=== PATIENT | male | born 1950 | race American Indian/Alaskan Native ===

== ENCOUNTER 2017-08-29 12:00 | Emergency (ER) | payer MEDICARE ==
[2017-08-29] MEDS ORDERED: Albuterol/Ipratropium 3.0-0.5 MG/3 ML Neb Soln NEB ONE (12:35)
--- NOTE | 2017-08-29 12:42 | EDM.PDOC ---
ED HPI GENERAL MEDICAL PROBLEM - General Chief Complaint: General Stated Complaint: FALL VIA NORTH Time Seen by Provider: 08/29/17 12:15 Source of Information: Reports: Patient, EMS History Limitations: Reports: No Limitations - History of Present Illness INITIAL COMMENTS - FREE TEXT/NARRATIVE: 67-year-old male brought in by EMS after being found on the bathroom floor at his local assisted care residence. He has only been there for 2 or 3 weeks. It' s felt that he may have been on the floor for up to 20-30 minutes, his hands looked dusky and he was confused. EMS was called and he was found to have O2 saturations only 85%. He has significant cough and wheezing. He is actively smoking. He was given oxygen in route and now is back to baseline, color is good and he has no complaints. When asked why he was on the floor he said he "slipped". He was too weak to get up. He denies any fevers or chills. Onset: Unknown/Unsure Severity: Moderate Associated Symptoms: Reports: Cough, Shortness of Breath. Denies: Fever/Chills Denies Pain Score (Numeric/FACES): 0 - Related Data Allergies Allergy/AdvReac Type Severity Reaction Status Date / Time acetaminophen [From Tylenol] Allergy Cannot Verified 08/29/17 12:15 Remember codeine Allergy Cannot Verified 08/29/17 12:15 Remember latex Allergy Cannot Verified 08/29/17 12:15 Remember morphine Allergy Cannot Verified 08/29/17 12:15 Remember tomato Allergy Cannot Verified 08/29/17 12:15 Remember Home Meds: Home Meds Cholecalciferol (Vitamin D3) [Vitamin D3] 1,000 unit PO DAILY 08/29/17 [History] Hydrocortisone 5 mg PO BEDTIME 08/29/17 [History] Hydrocortisone 10 mg PO DAILY 08/29/17 [History] Levothyroxine Sodium [Synthroid] 100 mcg PO DAILY 08/29/17 [History] OLANZapine [ZyPREXA] 5 mg PO Q6H PRN 08/29/17 [History] Past Medical History Cardiovascular History: Reports: High Cholesterol Endocrine/Metabolic History: Reports: Hypothyroidism - Infectious Disease History Infectious Disease History: Reports: Chicken Pox - Past Surgical History GI Surgical History: Reports: Cholecystectomy, Hernia, Inguinal Musculoskeletal Surgical History: Reports: Shoulder Surgery Social & Family History - Tobacco Use Smoking Status *Q: Current Every Day Smoker Years of Tobacco use: 35 Packs/Tins Daily: 0.5 Used Tobacco, but Quit: No Second Hand Smoke Exposure: No - Caffeine Use Caffeine Use: Reports: Coffee, Soda, Tea - Recreational Drug Use Recreational Drug Use: No ED ROS GENERAL - Review of Systems Review Of Systems: See Below Constitutional: Reports: Weakness. Denies: Fever, Chills HEENT: Reports: No Symptoms Respiratory: Reports: Shortness of Breath, Wheezing, Cough. Denies: Sputum Cardiovascular: Denies: Chest Pain GI/Abdominal: Denies: Abdominal Pain, Nausea, Vomiting Musculoskeletal: Reports: No Symptoms Skin: Reports: Pallor Neurological: Reports: Weakness. Denies: Confusion, Headache Psychiatric: Reports: No Symptoms ED EXAM, GENERAL - Physical Exam Exam: See Below Exam Limited By: No Limitations General Appearance: Alert, No Apparent Distress Eye Exam: Bilateral Eye: EOMI Throat/Mouth: Normal Inspection Head: Atraumatic Neck: Supple, Non-Tender Respiratory/Chest: No Respiratory Distress, Wheezing (Diffuse expiratory wheezing, some focal rales the right posterior perihilar area) Cardiovascular: Regular Rate, Rhythm GI/Abdominal: Non-Tender Extremities: Normal Inspection. No: Pedal Edema Neurological: Alert, Oriented Psychiatric: Normal Affect, Normal Mood Skin Exam: Warm, Dry Course - Vital Signs Last Recorded V/S: Last Vital Signs Temp 98.6 F 08/29/17 12:20 Pulse 83 08/29/17 13:35 Resp 20 08/29/17 13:35 BP 139/82 08/29/17 13:35 Pulse Ox 94 L 08/29/17 13:35 - Orders/Labs/Meds Orders: Active Orders 24 hr Category Date Time Status RT Aerosol Therapy [RC] ASDIRECTED Care 08/29/17 12:35 Active Labs: Laboratory Tests 08/29/17 08/29/17 Range/Units 12:48 12:48 WBC 5.4 (4.5-11.0) K/uL RBC 4.11 L (4.30-5.90) M/uL Hgb 13.2 (12.0-15.0) g/dL Hct 39.2 L (40.0-54.0) % MCV 95 (80-98) fL MCH 32 H (27-31) pg MCHC 34 (32-36) % Plt Count 172 (150-400) K/uL Neut % (Auto) 47 (36-66) % Lymph % (Auto) 29 (24-44) % [place] % (Auto) 22 H (2-6) % Eos % (Auto) 2 (2-4) % Baso % (Auto) 0 (0-1) % Sodium 135 L (140-148) mmol/L Potassium 4.2 (3.6-5.2) mmol/L Chloride 98 L (100-108) mmol/L Carbon Dioxide 28 (21-32) mmol/L Anion Gap 13.2 (5.0-14.0) mmol/L BUN 23 H (7-18) mg/dL Creatinine 1.2 (0.8-1.3) mg/dL Est Cr Clr Drug Dosing 59.99 mL/min Estimated GFR (MDRD) > 60 (>60) Glucose 107 H (74-106) mg/dL Calcium 8.5 (8.5-10.1) mg/dL Total Bilirubin 0.7 (0.2-1.0) mg/dL AST 35 (15-37) U/L ALT 43 (12-78) U/L Alkaline Phosphatase 78 (46-116) U/L Creatine Kinase 200 (39-308) U/L Troponin I 0.018 (0.000-0.056) ng/mL Total Protein 7.4 (6.4-8.2) g/dL Albumin 3.4 (3.4-5.0) g/dL Globulin 4.0 H (2.3-3.5) g/dL Albumin/Globulin Ratio 0.9 L (1.2-2.2) Meds: Medications Discontinued Medications Generic Name Dose Route Start Last Admin Trade Name Freq PRN Reason Stop Dose Admin Albuterol/Ipratropium 3 ml 08/29/17 12:35 08/29/17 12:40 Duoneb 3.0-0.5 Mg/3 Ml NEB 08/29/17 12:36 3 ml ONETIME ONE Administration - Re-Assessments/Exams Free Text/Narrative Re-Assessment/Exam: 08/29/17 12:41 A DuoNeb was given. Portable chest x-ray was obtained along with a CBC, CMP, CK and troponin. 08/29/17 13:25 Influences were negative, CBC was normal, troponin negative. Patient did have some objective improvement after the DuoNeb and continued to have no complaints. I find no reason for transfer or acute admission. Departure - Departure Time of Disposition: 13:54 Disposition: [facility] Condition: Good Clinical Impression: Fall Qualifiers: Encounter type: initial encounter Qualified Code(s): W19.XXXA - Unspecified fall, initial encounter Reactive airway disease Qualifiers: Asthma severity: moderate Asthma persistence: persistent Asthma complication type: uncomplicated Qualified Code(s): J45.40 - Moderate persistent asthma, uncomplicated - Discharge Information Instructions: Fall Prevention in the Home, [id number] Referrals: PCP,None [Primary Care Provider] - Forms: ED Department Discharge Care Plan Goals: Continue medications as tolerated. Consider rechecking if worsening such as fever, increased cough or shortness of breath. Would recommend reducing smoking. - My Orders Last 24 Hours: My Active Orders 08/29/17 12:35 RT Aerosol Therapy [RC] ASDIRECTED - Assessment/Plan Last 24 Hours: My Active Orders 08/29/17 12:35 RT Aerosol Therapy [RC] ASDIRECTED
--- NOTE | 2017-08-29 14:49 | CR ---
Chest 1V Frontal INDICATION: cough COMPARISON: None FINDINGS: AP portable chest. Heart size normal. Mild vascular congestion and bibasilar congestion. No focal consolidations seen. N o pleural effusion. Age indeterminate left-sided rib fractures.
== END 2017-08-29 13:54 ==
LOC: JP.ED 12:00
DX: J45.40 Moderate persistent asthma, uncomplicated (principal); E03.9 Hypothyroidism, unspecified; E78.00 Pure hypercholesterolemia, unspecified; F17.210 Nicotine dependence, cigarettes, uncomplicated; Z88.5 Allergy status to narcotic agent; Z91.040 Latex allergy status; Z91.018 Allergy to other foods; Z79.899 Other long term (current) drug therapy; W19.XXXA Unspecified fall, initial encounter
CPT/HCPCS: 36415; 71045; 80053; 82550; 84484; 85025; 87804; 94640; 99285; J7620; 99284

== ENCOUNTER 2018-02-26 15:20 | Emergency (ER) | payer MEDICARE, MEDICAID ==
[2018-02-26] MEDS ORDERED: Albuterol/Ipratropium 3.0-0.5 MG/3 ML Neb Soln NEB ONE ×2 (16:02→16:39)
[2018-02-26] MEDS ORDERED: methylPREDNISolone Sod Succ 125 MG in Dextrose 5% in Water 100 ML IV ONE ×2 (16:02)
[2018-02-26] MEDS ORDERED: methylPREDNISolone Sodium Succinate 125 MG/2 ML SDV ONE (16:12)
[2018-02-26] MEDS: Sodium Chloride 0.9% 10 ML Syringe FLUSH PRN ×2 (16:23→18:03)
[2018-02-26] MEDS ORDERED: methylPREDNISolone Sodium Succinate 125 MG/2 ML SDV IV ONE (16:30)
[2018-02-26] MEDS ORDERED: Albuterol 0.083% 2.5 MG/3 ML Neb Soln NEB ONE (17:21)
--- NOTE | 2018-02-26 17:26 | EDM.PDOC ---
ED HPI GENERAL MEDICAL PROBLEM - General Chief Complaint: Respiratory Problem Stated Complaint: WHEEZING/SOB Time Seen by Provider: 02/26/18 15:42 Source of Information: Reports: Patient History Limitations: Reports: No Limitations - History of Present Illness INITIAL COMMENTS - FREE TEXT/NARRATIVE: Started this am Sx: sob, cough and wheezing Denies any lung issues: is a smoker; since he was a teen. Denies use of inhalers at home NO fever States he felt fine yesterday. Onset: Today Duration: Hour(s): (this morning) Quality: Reports: Pressure Worsens with: Reports: Movement Associated Symptoms: Reports: Cough, Shortness of Breath, Weakness - Related Data Allergies Allergy/AdvReac Type Severity Reaction Status Date / Time acetaminophen [From Tylenol] Allergy Cannot Verified 02/26/18 15:56 Remember codeine Allergy Cannot Verified 02/26/18 15:56 Remember latex Allergy Cannot Verified 02/26/18 15:56 Remember morphine Allergy Cannot Verified 02/26/18 15:56 Remember tomato Allergy Cannot Verified 02/26/18 15:56 Remember Home Meds: Home Meds Cholecalciferol (Vitamin D3) [Vitamin D3] 1,000 unit PO DAILY 08/29/17 [History] Hydrocortisone 5 mg PO BEDTIME 08/29/17 [History] Hydrocortisone 10 mg PO DAILY 08/29/17 [History] Levothyroxine Sodium [Synthroid] 100 mcg PO DAILY 08/29/17 [History] Albuterol [Proventil HFA] 2 puff INH Q4H PRN #1 inhaler 02/26/18 [Rx] Pravastatin [Pravachol] 1 tab PO BEDTIME 02/26/18 [History] Testosterone [Androgel] 3 applic TOP DAILY 02/26/18 [History] predniSONE [Prednisone] 50 mg PO DAILY #5 tablet 02/26/18 [Rx] Past Medical History Cardiovascular History: Reports: High Cholesterol, ID Endocrine/Metabolic History: Reports: Hypothyroidism Hematologic History: Reports: Anemia - Infectious Disease History Infectious Disease History: Reports: Chicken Pox - Past Surgical History GI Surgical History: Reports: Appendectomy, Cholecystectomy, Hernia, Inguinal Musculoskeletal Surgical History: Reports: Shoulder Surgery Social & Family History - Tobacco Use Smoking Status *Q: Current Every Day Smoker Years of Tobacco use: 53 Packs/Tins Daily: 0.5 - Caffeine Use Caffeine Use: Reports: None - Recreational Drug Use Recreational Drug Use: No ED ROS GENERAL - Review of Systems Review Of Systems: See Below Constitutional: Reports: Weakness Respiratory: Reports: Shortness of Breath, Wheezing, Pleuritic Chest Pain, Cough Cardiovascular: Reports: No Symptoms GI/Abdominal: Reports: No Symptoms : Reports: No Symptoms Musculoskeletal: Reports: No Symptoms Skin: Reports: No Symptoms Neurological: Reports: No Symptoms ED EXAM, GENERAL - Physical Exam Exam: See Below Exam Limited By: No Limitations General Appearance: Alert, WD/WN, No Apparent Distress Throat/Mouth: Normal Inspection, Normal Oropharynx Head: Atraumatic, Normocephalic Neck: Normal Inspection, Full Range of Motion Respiratory/Chest: Respiratory Distress, Wheezing, Prolonged Expiration Cardiovascular: Tachycardia. No: Regular Rate, Rhythm GI/Abdominal: Normal Bowel Sounds, Soft, Non-Tender Extremities: Normal Inspection, Normal Range of Motion, Non-Tender, No Pedal Edema Neurological: Alert, Oriented, CN II-XII Intact, Normal Cognition, Normal Gait Psychiatric: Normal Affect, Normal Mood Skin Exam: Warm, Dry, Intact, Normal Color, No Rash Course - Vital Signs Last Recorded V/S: Last Vital Signs Temp 97.9 F 02/26/18 18:00 Pulse 111 H 02/26/18 18:33 Resp 20 02/26/18 18:00 BP 151/97 H 02/26/18 18:33 Pulse Ox 95 02/26/18 18:33 - Orders/Labs/Meds Orders: Active Orders 24 hr Category Date Time Status Peripheral IV Care [RC] . DIRECTED Care 02/26/18 16:03 Active RT Aerosol Therapy [RC] ASDIRECTED Care 02/26/18 16:02 Active RT Aerosol Therapy [RC] ASDIRECTED Care 02/26/18 16:39 Active RT Aerosol Therapy [RC] ASDIRECTED Care 02/26/18 17:21 Active Chest 1V Frontal [CR] Stat Exams 02/26/18 16:03 Taken Peripheral IV Insertion Adult [OM.PC] Stat Oth 02/26/18 16:03 Ordered Labs: Laboratory Tests 02/26/18 02/26/18 02/26/18 Range/Units 16:32 16:32 16:45 WBC 10.9 (4.5-11.0) K/uL RBC 4.65 (4.30-5.90) M/uL Hgb 14.5 (12.0-15.0) g/dL Hct 43.3 (40.0-54.0) % MCV 93 (80-98) fL MCH 31 (27-31) pg MCHC 34 (32-36) % Plt Count 209 (150-400) K/uL Neut % (Auto) 66 (36-66) % Lymph % (Auto) 22 L (24-44) % [place] % (Auto) 9 H (2-6) % Eos % (Auto) 2 (2-4) % Baso % (Auto) 0 (0-1) % Sodium 142 (140-148) mmol/L Potassium 4.2 (3.6-5.2) mmol/L Chloride 104 (100-108) mmol/L Carbon Dioxide 26 (21-32) mmol/L Anion Gap 11.9 (5.0-14.0) mmol/L BUN 19 H (7-18) mg/dL Creatinine 1.2 (0.8-1.3) mg/dL Est Cr Clr Drug Dosing 59.99 mL/min Estimated GFR (MDRD) > 60 (>60) Glucose 119 H (74-106) mg/dL Calcium 8.3 L (8.5-10.1) mg/dL Total Bilirubin 0.3 D (0.2-1.0) mg/dL AST 14 L (15-37) U/L ALT 21 (12-78) U/L Alkaline Phosphatase 124 H (46-116) U/L NT-Pro-B Natriuret Pep 194 H (5-125) pg/mL Total Protein 7.4 (6.4-8.2) g/dL Albumin 3.3 L (3.4-5.0) g/dL Globulin 4.1 H (2.3-3.5) g/dL Albumin/Globulin Ratio 0.8 L (1.2-2.2) Meds: Medications Discontinued Medications Generic Name Dose Route Start Last Admin Trade Name Freq PRN Reason Stop Dose Admin Albuterol 2.5 mg 02/26/18 17:21 02/26/18 18:04 Proventil Neb Soln NEB 02/26/18 17:22 2.5 mg ONETIME ONE Administration Albuterol/Ipratropium 3 ml 02/26/18 16:02 02/26/18 16:20 Duoneb 3.0-0.5 Mg/3 Ml NEB 02/26/18 16:03 3 ml ONETIME ONE Administration Albuterol/Ipratropium 3 ml 02/26/18 16:39 02/26/18 16:45 Duoneb 3.0-0.5 Mg/3 Ml NEB 02/26/18 16:40 3 ml ONETIME ONE Administration Ceftriaxone Sodium 1 gm/ 50 mls @ 100 mls/hr 02/26/18 17:35 02/26/18 18:04 Sodium Chloride IV 02/26/18 18:04 100 mls/hr ONETIME ONE Administration Methylprednisolone Sodium Succinate 125 mg 02/26/18 16:30 02/26/18 16:22 Solu-Medrol IV 02/26/18 16:31 125 mg ONETIME ONE Administration Methylprednisolone Sodium Succinate Confirm 02/26/18 16:12 02/26/18 16:38 Solu-Medrol Administered 02/26/18 16:13 Not Given Dose 125 mg .ROUTE .STK-MED ONE Sodium Chloride 10 ml 02/26/18 16:03 02/26/18 18:03 Saline Flush FLUSH 10 ml ASDIRECTED PRN Administration Keep Vein Open - Re-Assessments/Exams Free Text/Narrative Re-Assessment/Exam: 02/26/18 17:26 Following 3 nebulizer treatments, patient feels a little better. The wob has decreased. He doesn't want to be admitted to hospital. 02/26/18 17:56 He again is refusing admission; will place him on azithromycin, prednisone and albuterol; is to FU with PCP this week. Departure - Departure Time of Disposition: 18:30 Disposition: Home, Self-Care 01 Condition: Fair Clinical Impression: COPD exacerbation, Acute bronchitis - Discharge Information Prescriptions: Albuterol [Proventil HFA] 2 puff INH Q4H PRN #1 inhaler PRN Reason: Shortness Of Breath predniSONE [Prednisone] 50 mg PO DAILY #5 tablet Instructions: Cough, Adult, [id number], Chronic Obstructive Pulmonary Disease , [id number], Acute Bronchitis, Adult, [id number] Referrals: Zi Olivas MD [Primary Care Provider] - Forms: ED Department Discharge Additional Instructions: He refuses admission; he is in an assisted living; he understands that his symptoms can go from bad to worse and he still declines admission; Home with albuterol inhaler, azithromycin and predisone. Is to FU with PCP this week. Return to ER with worsening of symptoms. - My Orders Last 24 Hours: My Active Orders 02/26/18 16:02 RT Aerosol Therapy [RC] ASDIRECTED 02/26/18 16:03 Peripheral IV Care [RC] . DIRECTED Chest 1V Frontal [CR] Stat Peripheral IV Insertion Adult [OM.PC] Stat 02/26/18 16:39 RT Aerosol Therapy [RC] ASDIRECTED 02/26/18 17:21 RT Aerosol Therapy [RC] ASDIRECTED - Assessment/Plan Last 24 Hours: My Active Orders 02/26/18 16:02 RT Aerosol Therapy [RC] ASDIRECTED 02/26/18 16:03 Peripheral IV Care [RC] . DIRECTED Chest 1V Frontal [CR] Stat Peripheral IV Insertion Adult [OM.PC] Stat 02/26/18 16:39 RT Aerosol Therapy [RC] ASDIRECTED 02/26/18 17:21 RT Aerosol Therapy [RC] ASDIRECTED
[2018-02-26] MEDS ORDERED: cefTRIAXone 1 GM in Sodium Chloride 0.9% 50 ML IV ONE (17:35)
--- NOTE | 2018-02-28 10:21 | CR ---
Chest 1V Frontal INDICATION: shortness of breath COMPARISON: 08/29/2017 FINDINGS: AP portable chest. Probable mild fibrotic changes at the lung bases unchanged. No new infiltrates or definite signs of p ulmonary edema. No pleural effusion. Heart size normal. Old left rib fractures. If symptoms persist r ecommend CT chest without IV contrast
== END 2018-02-26 18:50 | disposition home or self-care (01) ==
LOC: JP.ED 15:20
DX: J44.0 Chronic obstructive pulmonary disease with (acute) lower respiratory infection (principal); J44.1 Chronic obstructive pulmonary disease with (acute) exacerbation; J20.9 Acute bronchitis, unspecified; E03.9 Hypothyroidism, unspecified; E78.00 Pure hypercholesterolemia, unspecified; I25.2 Old myocardial infarction; F17.210 Nicotine dependence, cigarettes, uncomplicated; Z79.899 Other long term (current) drug therapy; Z88.5 Allergy status to narcotic agent; Z91.018 Allergy to other foods; Z91.040 Latex allergy status
CPT/HCPCS: 36415; 71045; 80053; 83880; 85025; 94640; 96365; 96375; 99285; J0696; J2930; J7050; J7620

== ENCOUNTER 2018-04-05 12:54 | Emergency (ER) | payer MEDICARE, MEDICAID ==
--- NOTE | 2018-04-05 13:28 | EDM.PDOC ---
ED HPI GENERAL MEDICAL PROBLEM - General Chief Complaint: Respiratory Problem Stated Complaint: SHORTNESS OF BREATH, WHEEZING Time Seen by Provider: 04/05/18 13:28 Source of Information: Reports: Patient History Limitations: Reports: No Limitations - History of Present Illness INITIAL COMMENTS - FREE TEXT/NARRATIVE: Cyril presents today with complaints of SOB with cough for 24 hours. He reports he has tried a nebulizer this morning but it didn't really help. Patient oriented to self only, not oriented to day, date or year. - Related Data Allergies Allergy/AdvReac Type Severity Reaction Status Date / Time acetaminophen [From Tylenol] Allergy Cannot Verified 04/05/18 13:15 Remember codeine Allergy Cannot Verified 04/05/18 13:15 Remember latex Allergy Cannot Verified 04/05/18 13:15 Remember morphine Allergy Cannot Verified 04/05/18 13:15 Remember tomato Allergy Cannot Verified 04/05/18 13:15 Remember Home Meds: Home Meds Cholecalciferol (Vitamin D3) [Vitamin D3] 1,000 unit PO DAILY 08/29/17 [History] Hydrocortisone 5 mg PO BEDTIME 08/29/17 [History] Hydrocortisone 10 mg PO DAILY 08/29/17 [History] Levothyroxine Sodium [Synthroid] 100 mcg PO DAILY 08/29/17 [History] Albuterol [Proventil HFA] 2 puff INH Q4H PRN #1 inhaler 02/26/18 [Rx] Pravastatin [Pravachol] 1 tab PO BEDTIME 02/26/18 [History] Testosterone [Androgel] 3 applic TOP DAILY 02/26/18 [History] predniSONE [Prednisone] 50 mg PO DAILY #5 tablet 02/26/18 [Rx] Past Medical History Cardiovascular History: Reports: CAD, High Cholesterol, [place] Musculoskeletal History: Reports: Osteoarthritis Endocrine/Metabolic History: Reports: Hypothyroidism, Other (See Below) Other Endocrine/Metabolic History: panhypopituitaryism Hematologic History: Reports: Anemia - Infectious Disease History Infectious Disease History: Reports: Chicken Pox - Past Surgical History Cardiovascular Surgical History: Reports: None GI Surgical History: Reports: Appendectomy, Cholecystectomy, Hernia, Inguinal Musculoskeletal Surgical History: Reports: Shoulder Surgery Social & Family History - Tobacco Use Smoking Status *Q: Current Every Day Smoker Years of Tobacco use: 20 Packs/Tins Daily: 0.5 - Caffeine Use Caffeine Use: Reports: None - Recreational Drug Use Recreational Drug Use: No ED ROS GENERAL - Review of Systems Review Of Systems: See Below Constitutional: Denies: Fever, Chills, Malaise, Weakness HEENT: Reports: Ear Pain, Rhinitis. Denies: Dental Pain, Sinus Problem, Throat Pain Respiratory: Reports: Shortness of Breath, Wheezing, Cough. Denies: Pleuritic Chest Pain, Sputum, Hemoptysis Cardiovascular: Reports: Dyspnea on Exertion, Edema. Denies: Chest Pain, Lightheadedness, Palpitations, Syncope Endocrine: Reports: No Symptoms GI/Abdominal: Denies: Abdominal Pain, Bloody Stool, Constipation, Diarrhea, Nausea, Vomiting : Reports: No Symptoms Musculoskeletal: Reports: No Symptoms Skin: Reports: Other (Edema bilateral lower extremities 2+) Neurological: Reports: Confusion. Denies: Dizziness, Headache, Numbness, Tingling, Weakness Psychiatric: Reports: No Symptoms Hematologic/Lymphatic: Reports: No Symptoms Immunologic: Reports: No Symptoms ED EXAM, GENERAL - Physical Exam Exam: See Below Free Text/Narrative:: Cyril is alert to self 67 year old male who lives in an assisted living facility presenting with SOB and cough that worsened this morning. He tried use of a nebulizer and did not have much improvement. His baseline status shows he is usually confused at times. Per the staff with him, he is not more confused today. Exam Limited By: No Limitations General Appearance: Alert, WD/WN, Mild Distress Eye Exam: Bilateral Eye: EOMI (f), Normal Inspection, PERRL Ears: Normal External Exam, Normal Canal, Hearing Grossly Normal, Normal TMs Ear Exam: Bilateral Ear: Auricle Normal, Canal Normal, TM normal Nose: Normal Inspection, Normal Mucosa, No Blood Throat/Mouth: Normal Inspection, Normal Lips, Normal Gums, Normal Oropharynx, Normal Voice, No Airway Compromise Head: Atraumatic, Normocephalic Neck: Normal Inspection, Supple, Non-Tender, Full Range of Motion. No: Lymphadenopathy (R), Lymphadenopathy (L) Respiratory/Chest: No Respiratory Distress, No Accessory Muscle Use, Chest Non- Tender, Rhonchi, Wheezing, Other (No pursed lipped breathing, no cyanosis, patient able to speak in full sentences. ). No: Stridor, Accessory Muscle Use, Retractions, Splinting Cardiovascular: Normal Peripheral Pulses, Regular Rate, Rhythm, No Murmur, No Rub, Other (Edema 2+ bilateral lower extremities) Peripheral Pulses: 1+: Dorsalis Pedis (L), Dorsalis Pedis (R), 2+: Radial (L), Radial (R) GI/Abdominal: Normal Bowel Sounds, Soft, Non-Tender, No Organomegaly, No Distention, No Mass Back Exam: Normal Inspection, Full Range of Motion. No: CVA Tenderness (R), CVA Tenderness (L) Extremities: Normal Range of Motion, Non-Tender, Normal Capillary Refill, Other (Bilateral pedal edema 2+) Neurological: Alert, CN II-XII Intact, Normal Cognition, Normal Gait, Normal Reflexes, No Motor/Sensory Deficits, Other (Normal cognition per his usual baseline) Psychiatric: Normal Affect, Normal Mood Skin Exam: Warm, Dry, Intact, Normal Color, No Rash Lymphatic: No Adenopathy Course - Vital Signs Last Recorded V/S: Last Vital Signs Temp 37.2 C 04/05/18 13:14 Pulse 95 04/05/18 14:36 Resp 18 04/05/18 14:36 BP 142/88 H 04/05/18 14:36 Pulse Ox 96 04/05/18 14:36 - Orders/Labs/Meds Orders: Active Orders 24 hr Category Date Time Status RT Aerosol Therapy [RC] ASDIRECTED Care 04/05/18 13:36 Active RT Aerosol Therapy [RC] ASDIRECTED Care 04/05/18 14:41 Active Saline Lock Insert [OM.PC] Routine Oth 04/05/18 13:36 Ordered Labs: Laboratory Tests 04/05/18 04/05/18 Range/Units 13:48 13:48 WBC 6.8 (4.5-11.0) K/uL RBC 4.55 (4.30-5.90) M/uL Hgb 14.4 (12.0-15.0) g/dL Hct 42.5 (40.0-54.0) % MCV 93 (80-98) fL MCH 32 H (27-31) pg MCHC 34 (32-36) % Plt Count 201 (150-400) K/uL Neut % (Auto) 58 (36-66) % Lymph % (Auto) 20 L (24-44) % [place] % (Auto) 19 H (2-6) % Eos % (Auto) 2 (2-4) % Baso % (Auto) 1 (0-1) % Sodium 137 L (140-148) mmol/L Potassium 3.9 (3.6-5.2) mmol/L Chloride 100 (100-108) mmol/L Carbon Dioxide 27 (21-32) mmol/L Anion Gap 13.9 (5.0-14.0) mmol/L BUN 19 H (7-18) mg/dL Creatinine 1.4 H (0.8-1.3) mg/dL Est Cr Clr Drug Dosing 46.56 mL/min Estimated GFR (MDRD) 50 L (>60) Glucose 140 H (74-106) mg/dL Calcium 8.3 L (8.5-10.1) mg/dL Total Bilirubin 0.6 D (0.2-1.0) mg/dL AST 20 (15-37) U/L ALT 23 (12-78) U/L Alkaline Phosphatase 113 (46-116) U/L C-Reactive Protein 3.76 H (0.0-0.3) mg/dL NT-Pro-B Natriuret Pep 416 H (5-125) pg/mL Total Protein 7.0 (6.4-8.2) g/dL Albumin 3.1 L (3.4-5.0) g/dL Globulin 3.9 H (2.3-3.5) g/dL Albumin/Globulin Ratio 0.8 L (1.2-2.2) Patient lab work reviewed with Officer, he is in agreement with plan. Furosemide 20mg IV administered. No indication for antibiotics at this time, recent antibiotics (rocephin, azithromycin) in February. Patient suffering from exacerbation of COPD, will administer solumedrol, provide scripts for prednisone, albuterol nebulizer and follow up with primary provider. Meds: Medications Discontinued Medications Generic Name Dose Route Start Last Admin Trade Name Freq PRN Reason Stop Dose Admin Albuterol/Ipratropium 3 ml 04/05/18 13:35 04/05/18 13:46 Duoneb 3.0-0.5 Mg/3 Ml NEB 04/05/18 13:36 3 ml ONETIME ONE Administration Furosemide 20 mg 04/05/18 13:58 04/05/18 14:04 Lasix IVPUSH 04/05/18 13:59 20 mg ONETIME ONE Administration Levalbuterol HCl 1.25 mg 04/05/18 14:41 04/05/18 14:53 Xopenex NEB 04/05/18 14:42 1.25 mg ONETIME ONE Administration Methylprednisolone Sodium Succinate 125 mg 04/05/18 14:28 04/05/18 14:35 Solu-Medrol IVPUSH 04/05/18 14:29 125 mg ONETIME ONE Administration Sodium Chloride 10 ml 04/05/18 13:36 04/05/18 13:59 Saline Flush FLUSH 10 ml ASDIRECTED PRN Administration Keep Vein Open 1530, patient reports significant improvement in breathing, O2 saturation 96-98 % on room air. - Radiology Interpretation Free Text/Narrative:: Chest x-ray reviewed. Radiologist report shows diffuse interstitial prominence some of which is chronic. Some superimposed interstitial infiltrate or edema is not excluded. - Re-Assessments/Exams Free Text/Narrative Re-Assessment/Exam: 04/05/18 14:00 Discussed lab work, x-ray and status with patient and his caregiver. Patient advised to stop use of tobacco. 04/05/18 14:25 Patient reports he feels a little better. Departure - Departure Time of Disposition: 14:52 Disposition: Home, Self-Care 01 Condition: Fair Clinical Impression: COPD with exacerbation - Discharge Information *PRESCRIPTION DRUG MONITORING PROGRAM REVIEWED*: No *COPY OF PRESCRIPTION DRUG MONITORING REPORT IN PATIENT YANY: Not Applicable Instructions: Chronic Obstructive Pulmonary Disease Exacerbation Referrals: Zi Olivas MD [Primary Care Provider] - Forms: ED Department Discharge Additional Instructions: You have been evaluated and treated for COPD exacerbation. It would be best for you to stop use of cigarettes. If you do not stop the use of cigarettes your breathing will continue to get worse. You were given breathing treatments x 2 in the emergency room and solumedrol IV and lasix 20mg IV. Use your nebulizer machine and albuterol nebs every 4 to 6 hours for shortness of breath. Take prednisone 40mg by mouth daily for the next 5 days. Return to the emergency room for worsening, issues or concerns. There was no indication for antibiotics at this time. Follow up with your primary provider within 3 to 7 days for a recheck. - My Orders Last 24 Hours: My Active Orders 04/05/18 13:36 RT Aerosol Therapy [RC] ASDIRECTED Saline Lock Insert [OM.PC] Routine 04/05/18 14:41 RT Aerosol Therapy [RC] ASDIRECTED - Assessment/Plan Last 24 Hours: My Active Orders 04/05/18 13:36 RT Aerosol Therapy [RC] ASDIRECTED Saline Lock Insert [OM.PC] Routine 04/05/18 14:41 RT Aerosol Therapy [RC] ASDIRECTED Assessment:: COPD exacerbation Plan: Patient evaluated and treated for COPD exacerbation. It would be best to stop use of cigarettes. Patient given breathing treatments x 2 in the emergency room and solumedrol IV and lasix 20mg IV. Use nebulizer machine and albuterol nebulizer every 4 to 6 hours for shortness of breath. Take prednisone 40mg by mouth daily for the next 5 days. Return to the emergency room for worsening, issues or concerns. There was no indication for antibiotics at this time.
[2018-04-05] MEDS ORDERED: Albuterol/Ipratropium 3.0-0.5 MG/3 ML Neb Soln NEB ONE (13:35)
[2018-04-05] MEDS ORDERED: Sodium Chloride 0.9% 10 ML Syringe FLUSH PRN (13:36)
[2018-04-05] MEDS ORDERED: Furosemide 20 MG/2 ML VIAL IVPUSH ONE (13:58)
--- NOTE | 2018-04-05 14:19 | CR ---
CHEST: 2 view CLINICAL HISTORY:SOB COMPARISON:02/26/2018 FINDINGS: Heart size and probably vascular normal. There are atherosclerotic changes in the aorta. T here is generalized interstitial prominence. This is seen on prior studies. There are healed left rib fractures. IMPRESSION: Diffuse interstitial prominence some of which is chronic. Some superimposed interstitial infiltrate or edema is not excluded.
[2018-04-05] MEDS ORDERED: methylPREDNISolone Sodium Succinate 125 MG/2 ML SDV IVPUSH ONE (14:28)
[2018-04-05] MEDS ORDERED: Levalbuterol HCl 1.25 MG/3 ML Neb NEB ONE (14:41)
== END 2018-04-05 15:31 | disposition home or self-care (01) ==
LOC: JP.ED 12:54
DX: J44.1 Chronic obstructive pulmonary disease with (acute) exacerbation (principal); I25.10 Atherosclerotic heart disease of native coronary artery without angina pectoris; E78.00 Pure hypercholesterolemia, unspecified; I25.2 Old myocardial infarction; E03.9 Hypothyroidism, unspecified; F17.210 Nicotine dependence, cigarettes, uncomplicated; Z88.5 Allergy status to narcotic agent; Z91.040 Latex allergy status; Z79.899 Other long term (current) drug therapy
CPT/HCPCS: 36415; 71046; 80053; 83880; 85025; 86140; 94640; 96374; 96375; 99284; 99285; J1940; J2930; J7050; J7612; J7620-GY

== ENCOUNTER 2018-12-15 03:16 | Emergency (ER) | payer MEDICAID, MEDICARE ==
[2018-12-15] MEDS ORDERED: Albuterol/Ipratropium 3.0-0.5 MG/3 ML Neb Soln NEB ONE (03:46)
--- NOTE | 2018-12-15 03:51 | EDM.PDOC ---
ED HPI GENERAL MEDICAL PROBLEM - General Chief Complaint: Respiratory Problem Stated Complaint: BREATHING ISSUES Time Seen by Provider: 12/15/18 03:35 Source of Information: Reports: Patient, Old Records, RN History Limitations: Reports: No Limitations - History of Present Illness INITIAL COMMENTS - FREE TEXT/NARRATIVE: 68 yo male sent from [facility] [place] for wheezing, SOB, and cough. He denies a fever or orthopnea. Received a neb of albuterol en route with minimal benefit. He denies swelling of his legs. Admits to only minimal SOB at rest. Has a pHx of COPD. Onset: Gradual Onset Date: 12/14/18 Duration: Day(s): (1), Getting Worse Location: Reports: Chest Quality: Reports: Other (no pain reported) Severity: Moderate Improves with: Reports: Rest Worsens with: Reports: Movement Context: Reports: Other Associated Symptoms: Reports: Cough, Shortness of Breath. Denies: Chest Pain, Fever/Chills Treatments [employer]NAGER: Reports: Breathing Treatments denies pain Pain Score (Numeric/FACES): 0 - Related Data Allergies Allergy/AdvReac Type Severity Reaction Status Date / Time acetaminophen [From Tylenol] Allergy Cannot Verified 12/15/18 03:18 Remember codeine Allergy Cannot Verified 12/15/18 03:18 Remember latex Allergy Cannot Verified 12/15/18 03:18 Remember morphine Allergy Cannot Verified 12/15/18 03:18 Remember tomato Allergy Cannot Verified 12/15/18 03:18 Remember Home Meds: Home Meds Cholecalciferol (Vitamin D3) [Vitamin D3] 1,000 unit PO DAILY 08/29/17 [History] Hydrocortisone 10 mg PO BID 08/29/17 [History] Levothyroxine Sodium [Synthroid] 100 mcg PO DAILY 08/29/17 [History] Albuterol [Proventil HFA] 2 puff INH Q4H PRN #1 inhaler 02/26/18 [Rx] Pravastatin [Pravachol] 1 tab PO BEDTIME 02/26/18 [History] Testosterone [Androgel] 1 applic TOP DAILY 02/26/18 [History] Azithromycin [Zithromax] 250 mg PO DAILY #4 tab 12/15/18 [Rx] predniSONE [Prednisone] 20 mg PO BID #10 tablet 12/15/18 [Rx] Past Medical History Cardiovascular History: Reports: CAD, High Cholesterol, [place] Musculoskeletal History: Reports: Osteoarthritis Endocrine/Metabolic History: Reports: Hypothyroidism, Other (See Below) Other Endocrine/Metabolic History: panhypopituitaryism Hematologic History: Reports: Anemia - Infectious Disease History Infectious Disease History: Reports: Chicken Pox - Past Surgical History GI Surgical History: Reports: Appendectomy, Cholecystectomy, Hernia, Inguinal Musculoskeletal Surgical History: Reports: Shoulder Surgery Social & Family History - Tobacco Use Smoking Status *Q: Current Every Day Smoker Years of Tobacco use: 20 Packs/Tins Daily: 0.2 - Caffeine Use Caffeine Use: Reports: Tea - Recreational Drug Use Recreational Drug Use: No ED ROS GENERAL - Review of Systems Review Of Systems: See Below Constitutional: Reports: No Symptoms HEENT: Reports: No Symptoms Respiratory: Reports: Shortness of Breath, Wheezing, Cough. Denies: Pleuritic Chest Pain, Sputum, Hemoptysis Cardiovascular: Reports: No Symptoms Endocrine: Reports: No Symptoms GI/Abdominal: Reports: No Symptoms : Reports: No Symptoms Musculoskeletal: Reports: No Symptoms Skin: Reports: No Symptoms Neurological: Reports: No Symptoms Psychiatric: Reports: No Symptoms ED EXAM, GENERAL - Physical Exam Exam: See Below Exam Limited By: No Limitations General Appearance: Alert, WD/WN, No Apparent Distress Eye Exam: Bilateral Eye: Normal Inspection Ears: Normal External Exam, Normal Canal, Hearing Grossly Normal, Normal TMs Ear Exam: Bilateral Ear: Auricle Normal, Canal Normal, TM normal Nose: Normal Inspection, No Blood Throat/Mouth: Normal Inspection, Normal Lips, Normal Oropharynx, Normal Voice, No Airway Compromise Head: Atraumatic, Normocephalic Neck: Normal Inspection Respiratory/Chest: Wheezing, Other (mild tachypnea) Cardiovascular: Regular Rate, Rhythm, No Edema GI/Abdominal: Normal Bowel Sounds, Soft, Non-Tender, No Distention Back Exam: Normal Inspection. No: CVA Tenderness (R), CVA Tenderness (L) Extremities: Normal Inspection, Normal Range of Motion, Non-Tender, No Pedal Edema Neurological: Alert, Oriented, CN II-XII Intact, Normal Cognition, No Motor/ Sensory Deficits Psychiatric: Normal Affect, Normal Mood Skin Exam: Warm, Dry, Intact, Normal Color, No Rash Lymphatic: No Adenopathy Course - Vital Signs Text/Narrative:: Significant improvement after Duoneb. Last Recorded V/S: Last Vital Signs Temp 36.3 C 12/15/18 03:22 Pulse 103 H 12/15/18 03:22 Resp 28 H 12/15/18 03:22 BP 162/100 H 12/15/18 03:22 Pulse Ox 95 12/15/18 03:22 - Orders/Labs/Meds Orders: Active Orders 24 hr Category Date Time Status RT Aerosol Therapy [RC] ASDIRECTED Care 12/15/18 03:46 Active Chest 2V [CR] Stat Exams 12/15/18 04:15 Ordered Azithromycin [Zithromax] Med 12/15/18 04:53 Once 500 mg PO ONETIME ONE Sodium Chloride 0.9% [Saline Flush] Med 12/15/18 04:13 Active 10 ml FLUSH ASDIRECTED PRN Saline Lock Insert [OM.PC] Routine Oth 12/15/18 04:13 Ordered Medication Orders Sodium Chloride (Saline Flush) 10 ml FLUSH ASDIRECTED PRN PRN Reason: Keep Vein Open Last Admin: 12/15/18 04:19 Dose: 10 ml Labs: Laboratory Tests 12/15/18 12/15/18 Range/Units 03:53 03:53 WBC 9.9 (4.5-11.0) K/uL RBC 4.57 (4.30-5.90) M/uL Hgb 14.1 (12.0-15.0) g/dL Hct 42.5 (40.0-54.0) % MCV 93 (80-98) fL MCH 31 (27-31) pg MCHC 33 (32-36) % Plt Count 231 (150-400) K/uL Sodium 135 L (140-148) mmol/L Potassium 3.9 (3.6-5.2) mmol/L Chloride 99 L (100-108) mmol/L Carbon Dioxide 27 (21-32) mmol/L Anion Gap 12.9 (5.0-14.0) mmol/L BUN 13 (7-18) mg/dL Creatinine 1.1 (0.8-1.3) mg/dL Est Cr Clr Drug Dosing 64.52 mL/min Estimated GFR (MDRD) > 60 (>60) Glucose 120 H (74-106) mg/dL Calcium 8.7 (8.5-10.1) mg/dL Troponin I < 0.017 (0.000-0.056) ng/mL C-Reactive Protein 0.80 H (0.0-0.3) mg/dL Meds: Medications Generic Name Dose Route Start Last Admin Trade Name Freq PRN Reason Stop Dose Admin Sodium Chloride 10 ml 12/15/18 04:13 12/15/18 04:19 Saline Flush FLUSH 10 ml ASDIRECTED PRN Administration Keep Vein Open Discontinued Medications Generic Name Dose Route Start Last Admin Trade Name Freq PRN Reason Stop Dose Admin Albuterol/Ipratropium 3 ml 12/15/18 03:46 12/15/18 03:49 Duoneb 3.0-0.5 Mg/3 Ml NEB 12/15/18 03:47 3 ml ONETIME ONE Administration Methylprednisolone Sodium Succinate 125 mg 12/15/18 04:13 12/15/18 04:19 Solu-Medrol IVPUSH 12/15/18 04:14 125 mg ONETIME ONE Administration - Radiology Interpretation Free Text/Narrative:: CXR-negative Departure - Departure Time of Disposition: 05:30 Disposition: Home, Self-Care 01 Condition: Fair Clinical Impression: Bronchospasm with bronchitis, acute - Discharge Information *PRESCRIPTION DRUG MONITORING PROGRAM REVIEWED*: No *COPY OF PRESCRIPTION DRUG MONITORING REPORT IN PATIENT YANY: No Instructions: Chronic Obstructive Pulmonary Disease Exacerbation, [id number] Referrals: PCP,None [Primary Care Provider] - Forms: ED Department Discharge Additional Instructions: Give prednisone twice daily until gone. Give azithromycin every 24 hrs until gone. Give a scheduled dose of his Duoneb every 6 hrs for the next week, then as needed. Give albuterol as needed between Duoneb doses. Recheck with his primary care provider later this week. Return if worse. - My Orders Last 24 Hours: My Active Orders 12/15/18 03:46 RT Aerosol Therapy [RC] ASDIRECTED 12/15/18 04:13 Sodium Chloride 0.9% [Saline Flush] 10 ml FLUSH ASDIRECTED PRN Saline Lock Insert [OM.PC] Routine 12/15/18 04:15 Chest 2V [CR] Stat 12/15/18 04:53 Azithromycin [Zithromax] 500 mg PO ONETIME ONE - Assessment/Plan Last 24 Hours: My Active Orders 12/15/18 03:46 RT Aerosol Therapy [RC] ASDIRECTED 12/15/18 04:13 Sodium Chloride 0.9% [Saline Flush] 10 ml FLUSH ASDIRECTED PRN Saline Lock Insert [OM.PC] Routine 12/15/18 04:15 Chest 2V [CR] Stat 12/15/18 04:53 Azithromycin [Zithromax] 500 mg PO ONETIME ONE
[2018-12-15] MEDS ORDERED: Sodium Chloride 0.9% 10 ML Syringe FLUSH PRN (04:13)
[2018-12-15] MEDS ORDERED: methylPREDNISolone Sodium Succinate 125 MG/2 ML SDV IVPUSH ONE (04:13)
[2018-12-15] MEDS ORDERED: Azithromycin 250 MG Tab PO ONE (04:53)
--- NOTE | 2018-12-15 05:04 | CRLCR ---
INDICATION: Wheezing, shortness of breath TECHNIQUE: Chest radiograph 2 views COMPARISON: 04/05/2018 FINDINGS: Mediastinum: The mediastinum is normal in appearance. The heart silhouette is normal in size and morphology. Lung: Mild interstitial prominence is present in the lower lung zones without interval change and may be due to senescent fibrosis. On the lateral exam, there is increased density within the major fissure without change which may be due to pleural fat. No pneumothorax is identified. Musculoskeletal: Severe diffuse osteopenia seen. IMPRESSION: 1. No acute cardiopulmonary disease is seen. Dictated by Francois Anderson MD @ 12/15/2018 5:02:16 AM Dictated by: Francois Anderson MD @ 12/15/2018 05:02:19 (Electronically Signed)
[2018-12-15] MEDS ORDERED: Albuterol 0.083% 2.5 MG/3 ML Neb Soln NEB ONE (05:44)
== END 2018-12-15 07:20 | disposition home or self-care (01) ==
LOC: JP.ED 03:16
DX: J20.9 Acute bronchitis, unspecified (principal); I25.10 Atherosclerotic heart disease of native coronary artery without angina pectoris; E78.00 Pure hypercholesterolemia, unspecified; I25.2 Old myocardial infarction; F17.210 Nicotine dependence, cigarettes, uncomplicated; Z88.5 Allergy status to narcotic agent; Z79.899 Other long term (current) drug therapy
CPT/HCPCS: 36415; 71046; 80048; 84484; 85027; 86140; 94640; 96374; 99284; A9270; J2930; J7620-GY

== ENCOUNTER 2019-07-28 13:39 | Emergency (ER) | payer MEDICARE, MEDICAID ==
[2019-07-28] MEDS ORDERED: Lactated Ringers 1,000 ML IV ONE (14:19)
[2019-07-28] MEDS ORDERED: Sodium Chloride 0.9% 10 ML Syringe FLUSH PRN (14:19)
--- NOTE | 2019-07-28 14:24 | EDM.PDOC ---
ED HPI GENERAL MEDICAL PROBLEM - General Chief Complaint: General Stated Complaint: fell and tv landed on his head Time Seen by Provider: 07/28/19 14:11 Source of Information: Reports: Patient, RN Notes Reviewed History Limitations: Reports: No Limitations - History of Present Illness INITIAL COMMENTS - FREE TEXT/NARRATIVE: 68-year-old gentleman presents via EMS services from an assisted living facility. Did receive conflicting stories EMS reports nausea vomiting with diarrhea consistent with gastroenteritis blood pressure in route systolics 70s. However this gentleman denies any diarrhea states had one bout of vomiting states he tripped over his boot fell into the TV does not feel lightheaded no shortness of breath or chest pain however does have a neurocognitive deficit past medical history on [facility] records. No loss of consciousness however the event was unwitnessed - Related Data Allergies Allergy/AdvReac Type Severity Reaction Status Date / Time acetaminophen [From Tylenol] Allergy Cannot Verified 12/15/18 03:18 Remember codeine Allergy Cannot Verified 12/15/18 03:18 Remember latex Allergy Cannot Verified 12/15/18 03:18 Remember morphine Allergy Cannot Verified 12/15/18 03:18 Remember tomato Allergy Cannot Verified 12/15/18 03:18 Remember Home Meds: Home Meds Cholecalciferol (Vitamin D3) [Vitamin D3] 1,000 unit PO DAILY 08/29/17 [History] Hydrocortisone 10 mg PO BID 08/29/17 [History] Levothyroxine Sodium [Synthroid] 100 mcg PO DAILY 08/29/17 [History] Albuterol [Proventil HFA] 2 puff INH Q4H PRN #1 inhaler 02/26/18 [Rx] Pravastatin [Pravachol] 1 tab PO BEDTIME 02/26/18 [History] Testosterone [Androgel] 1 applic TOP DAILY 02/26/18 [History] Past Medical History Cardiovascular History: Reports: CAD, High Cholesterol, [place] Respiratory History: Reports: COPD Musculoskeletal History: Reports: Osteoarthritis Neurological History: Reports: Other (See Below) Other Neuro History: neurocognitive problems Endocrine/Metabolic History: Reports: Hypothyroidism, Other (See Below) Other Endocrine/Metabolic History: panhypopituitaryism Hematologic History: Reports: Anemia - Infectious Disease History Infectious Disease History: Reports: Chicken Pox - Past Surgical History GI Surgical History: Reports: Appendectomy, Cholecystectomy, Hernia, Inguinal Musculoskeletal Surgical History: Reports: Shoulder Surgery Social & Family History - Tobacco Use Smoking Status *Q: Current Every Day Smoker Years of Tobacco use: 20 Packs/Tins Daily: 0.5 - Caffeine Use Caffeine Use: Reports: None ED ROS GENERAL - Review of Systems Review Of Systems: See Below Constitutional: Reports: No Symptoms HEENT: Reports: No Symptoms Respiratory: Reports: No Symptoms Cardiovascular: Reports: No Symptoms GI/Abdominal: Reports: Nausea, Vomiting : Reports: No Symptoms Musculoskeletal: Reports: No Symptoms Skin: Reports: No Symptoms ED EXAM, GENERAL - Physical Exam Exam: See Below Exam Limited By: No Limitations General Appearance: Alert, WD/WN, No Apparent Distress Eye Exam: Bilateral Eye: Normal Inspection, PERRL Ears: Normal External Exam, Normal Canal, Hearing Grossly Normal, Normal TMs Nose: Normal Inspection, Normal Mucosa, No Blood Throat/Mouth: Normal Inspection, Normal Lips, Normal Teeth, Normal Gums, Normal Oropharynx, Normal Voice, No Airway Compromise Head: Atraumatic, Normocephalic. No: Facial Swelling, Facial Tenderness, Sinus Tenderness Neck: Normal Inspection, Supple, Non-Tender, Full Range of Motion Respiratory/Chest: No Respiratory Distress, Lungs Clear, Normal Breath Sounds, No Accessory Muscle Use, Chest Non-Tender Cardiovascular: Regular Rate, Rhythm, No Murmur GI/Abdominal: Soft, Non-Tender Extremities: Normal Inspection, Normal Range of Motion, Non-Tender Course - Vital Signs Last Recorded V/S: Last Vital Signs Temp 97.6 F 07/28/19 13:52 Pulse 97 07/28/19 13:52 Resp 14 07/28/19 13:52 BP 109/70 07/28/19 13:52 Pulse Ox 96 07/28/19 13:52 - Orders/Labs/Meds Orders: Active Orders 24 hr Category Date Time Status Peripheral IV Care [RC] . DIRECTED Care 07/28/19 14:20 Active Sodium Chloride 0.9% [Saline Flush] Med 07/28/19 14:19 Active 10 ml FLUSH ASDIRECTED PRN Peripheral IV Insertion Adult [OM.PC] Urgent Oth 07/28/19 14:16 Ordered Medication Orders Sodium Chloride (Saline Flush) 10 ml FLUSH ASDIRECTED PRN PRN Reason: Keep Vein Open Last Admin: 07/28/19 14:21 Dose: 10 ml Labs: Laboratory Tests 07/28/19 07/28/19 Range/Units 14:00 14:00 WBC 13.9 H (4.5-11.0) K/uL RBC 4.84 (4.30-5.90) M/uL Hgb 15.7 H (12.0-15.0) g/dL Hct 45.1 (40.0-54.0) % MCV 93 (80-98) fL MCH 32 H (27-31) pg MCHC 35 (32-36) % Plt Count 208 (150-400) K/uL Neut % (Auto) 79 H (36-66) % Lymph % (Auto) 10 L (24-44) % [place] % (Auto) 11 H (2-6) % Eos % (Auto) 0 L (2-4) % Baso % (Auto) 0 (0-1) % Sodium 131 L (140-148) mmol/L Potassium 4.1 (3.6-5.2) mmol/L Chloride 97 L (100-108) mmol/L Carbon Dioxide 21 (21-32) mmol/L Anion Gap 17.1 H (5.0-14.0) mmol/L BUN 30 H D (7-18) mg/dL Creatinine 1.6 H (0.8-1.3) mg/dL Est Cr Clr Drug Dosing 42.96 mL/min Estimated GFR (MDRD) 43 L (>60) Glucose 196 H (74-106) mg/dL Calcium 8.7 (8.5-10.1) mg/dL Meds: Medications Generic Name Dose Route Start Last Admin Trade Name Freq PRN Reason Stop Dose Admin Sodium Chloride 10 ml 07/28/19 14:19 07/28/19 14:21 Saline Flush FLUSH 10 ml ASDIRECTED PRN Administration Keep Vein Open Discontinued Medications Generic Name Dose Route Start Last Admin Trade Name Freq PRN Reason Stop Dose Admin Lactated Ringer's 1,000 mls @ 999 mls/hr 07/28/19 14:19 07/28/19 14:21 Ringers, Lactated IV 07/28/19 15:19 999 mls/hr BOLUS ONE Administration Departure - Departure Time of Disposition: 15:24 Disposition: DC/Tfer to [facility] Condition: Fair Clinical Impression: Dehydration - Discharge Information Referrals: PCP,None [Primary Care Provider] - Forms: ED Department Discharge Additional Instructions: Follow-up with your primary care as needed call return to the emergency department worsening of symptoms - My Orders Last 24 Hours: My Active Orders 07/28/19 14:16 Peripheral IV Insertion Adult [OM.PC] Urgent 07/28/19 14:19 Sodium Chloride 0.9% [Saline Flush] 10 ml FLUSH ASDIRECTED PRN 07/28/19 14:20 Peripheral IV Care [RC] . DIRECTED - Assessment/Plan Last 24 Hours: My Active Orders 07/28/19 14:16 Peripheral IV Insertion Adult [OM.PC] Urgent 07/28/19 14:19 Sodium Chloride 0.9% [Saline Flush] 10 ml FLUSH ASDIRECTED PRN 07/28/19 14:20 Peripheral IV Care [RC] . DIRECTED Plan: Assessment Acuity = acute Site and laterality = dehydration Etiology = probably secondary to diarrhea and vomiting Manifestations = none Location of injury = Home Lab values = WBC elevated 13.9 consistent leukocytosis, sodium level 131 consistent hyponatremia BUN elevated at 30 and creatinine elevated 1.6 consistent with acute renal failure stage G3 B consistent with intravascular volume depletion, glucose elevated 196 consistent hyperglycemia Plan Was provided 1 L of lactated Ringer's in the ED again denied any pain felt he was in his normal state therefore he is discharged back to the assisted living center follow-up primary care as needed This note was dictated using [employer] voice recognition software please call with any questions on syntax or grammar.
== END 2019-07-28 16:17 ==
LOC: JP.ED 13:39
DX: E86.0 Dehydration (principal); I25.10 Atherosclerotic heart disease of native coronary artery without angina pectoris; I25.2 Old myocardial infarction; J44.9 Chronic obstructive pulmonary disease, unspecified; E78.00 Pure hypercholesterolemia, unspecified; E03.9 Hypothyroidism, unspecified; Z88.6 Allergy status to analgesic agent; Z88.5 Allergy status to narcotic agent; Z91.040 Latex allergy status; Z91.018 Allergy to other foods; Z79.890 Hormone replacement therapy; Z79.899 Other long term (current) drug therapy; F17.210 Nicotine dependence, cigarettes, uncomplicated
CPT/HCPCS: 36415; 80048; 85025; 96360; 99284; J7120